=== PATIENT | male | born 1945 | race Caucasian/White ===

== ENCOUNTER 2020-11-26 12:51 | Inpatient (IN) ==
[~2020-11-26 12:51] MED LIST: ACETAMINOPHEN 325 MG TABLET PO PRN; HYDROmorphone 2 MG/1 ML VIAL IV PRN; ONDANSETRON 4 MG/2 ML VIAL IV PRN; PROMETHAZINE 25 MG/1 ML VIAL IM PRN; cefTRIAXone 1,000 MG in SODIUM CHLORIDE 0.9% 100 ML IV ONE
[2020-11-26 13:39] LABS: Basophils # 0.1 10*3/uL (0.0-0.2); Basophils % 1.6 % (0.0-0.8); Eosinophils # 0.4 10*3/uL (0.0-0.87); Eosinophils % 4.8 % (0.00-10.9); Hematocrit 43.6 VOL% (42.0-52.0); Hemoglobin 14.8 GM/DL (14.0-18.0); Immature Granulocytes % 0.3 %; Immature Granulocytes Absolute 0.02 #; Lymphocytes # 1.8 10*3/uL (1.4-4.0); Lymphocytes % 25.1 % (21.2-54.2); Mean Corpuscular HGB Conc 33.9 GM/DL (32-36); Mean Corpuscular Volume 93.2 FL (87-102); Mean Platelet Volume 10.6 FL (9.6-12.0); Neutrophils % 58.2 % (38.7-73.9); Platelet Count 227 T/CUMM (130-400); Red Blood Count 4.68 MC/CUMM (3.8-5.5); Red Cell Distribution Width 13.3 % (9.3-17.3); White Blood Count 7.3 T/CUMM (4-12)
[2020-11-26 13:49] LABS: Calcium 9.1 MG/DL (8.5-10.1); Osmolality,Calculated 273.8 MOS/KG (273-304); Potassium 4.1 MMOL/L (3.5-5.1)
[2020-11-26] MEDS ORDERED: FAMOTIDINE 20 MG TABLET PO ONE (13:55)
[2020-11-26] MEDS ORDERED: fentaNYL 100 MCG/2 ML VIAL ONE (15:08)
[2020-11-26] MEDS ORDERED: ePHEDrine 50 MG/ML VIAL ONE (15:22)
[2020-11-26] MEDS ORDERED: SEVOFLURANE 1 UNIT/15 MINUTE INH ONE (16:04)
[2020-11-26] MEDS ORDERED: ROCURONIUM 50 MG/5 ML VIAL IV ONE (16:04)
[2020-11-26] MEDS ORDERED: EPINEPHrine 1 MG/ML VIAL ONE (16:04)
[2020-11-26] MEDS ORDERED: propofoL 200 MG/20 ML VIAL IV ONE (16:04)
[2020-11-26] MEDS ORDERED: SUCCINYLCHOLINE 200 MG/10 ML VIAL ONE (16:04)
[2020-11-26] MEDS ORDERED: ONDANSETRON 4 MG/2 ML VIAL ONE (16:04)
[2020-11-26] MEDS ORDERED: SODIUM CHLORIDE 0.9% 250 ML IV ONE (16:04)
[2020-11-26] MEDS ORDERED: DEXAMETHASONE 4 MG/1 ML VIAL ONE (16:04)
[2020-11-26] MEDS ORDERED: LIDOCAINE 2% 5 ML VIAL ONE (16:04)
[2020-11-26 17:18] LABS: Bacteria,Urine Few /HPF (Few); Bilirubin,Urine Negative (Negative); Blood, Urine Large mg/dL (Negative); Glucose,Urine (UA) Negative (Negative); Ketones,Urine Negative (Negative); Nitrite,Urine Negative (Negative); Protein,Urine >=500 MG/DL; RBC,Urine 9717 /HPF (0-4); Urine Appearance CLOUDY (Clear); Urine Color Red (Yellow); Urine Urobilinogen < 2.0 EU/DL (0.2-1.0)
[2020-11-26] MEDS ORDERED: diphenhydrAMINE CAP 25 MG CAPSULE PO PRN (17:43)
[2020-11-26] MEDS: SODIUM CHLORIDE 0.9% 1,000 ML IV SCH (18:25)
[2020-11-26] MEDS: cefTRIAXone 1,000 MG in SODIUM CHLORIDE 0.9% 100 ML IV SCH (18:35)
[2020-11-26] MEDS: oxyCODONE/ACETAMINOPHEN 5-325 MG TABLET PO PRN ×2 (18:35→22:38)
[2020-11-26] MEDS: CITALOPRAM 20 MG TABLET PO SCH (21:25)
[2020-11-26] MEDS: tiZANidine 4 MG TABLET PO SCH (21:25)
[2020-11-27] MEDS: oxyCODONE/ACETAMINOPHEN 5-325 MG TABLET PO PRN ×3 (04:09→20:16)
[2020-11-27] MEDS: SODIUM CHLORIDE 0.9% 1,000 ML IV SCH ×3 (05:06→22:58)
[2020-11-27 06:42] LABS: Basophils % 0.1 % (0.0-0.8); Hematocrit 38.1 VOL% (42.0-52.0); Hemoglobin 12.8 GM/DL (14.0-18.0); Immature Granulocytes % 0.6 %; Immature Granulocytes Absolute 0.07 #; Lymphocytes # 0.7 10*3/uL (1.4-4.0); Lymphocytes % 6.1 % (21.2-54.2); Mean Corpuscular HGB Conc 33.6 GM/DL (32-36); Mean Corpuscular Volume 93.4 FL (87-102); Mean Platelet Volume 10.7 FL (9.6-12.0); Neutrophils % 88.2 % (38.7-73.9); Platelet Count 199 T/CUMM (130-400); Red Blood Count 4.08 MC/CUMM (3.8-5.5); Red Cell Distribution Width 13.2 % (9.3-17.3); White Blood Count 11.9 T/CUMM (4-12)
[2020-11-27 06:58] LABS: Calcium 8.5 MG/DL (8.5-10.1); Osmolality,Calculated 274.1 MOS/KG (273-304); Potassium 4.1 MMOL/L (3.5-5.1)
[2020-11-27] MEDS: amLODIPine 10 MG TABLET PO SCH (08:58)
[2020-11-27] MEDS: TAMSULOSIN 0.4 MG CAPSULE PO SCH (08:58)
[2020-11-27] MEDS: METOPROLOL TARTRATE 25 MG TABLET PO SCH (08:58)
[2020-11-27] MEDS: cefTRIAXone 1,000 MG in SODIUM CHLORIDE 0.9% 100 ML IV SCH (17:19)
[2020-11-27] MEDS: tiZANidine 4 MG TABLET PO SCH (20:16)
[2020-11-27] MEDS: CITALOPRAM 20 MG TABLET PO SCH (20:16)
[2020-11-27] MEDS ORDERED: ROSUVASTATIN 10 MG TABLET PO SCH (21:00)
[2020-11-28 06:51] LABS: Basophils # 0.1 10*3/uL (0.0-0.2); Basophils % 0.9 % (0.0-0.8); Eosinophils # 0.1 10*3/uL (0.0-0.87); Eosinophils % 1.7 % (0.00-10.9); Hematocrit 37.5 VOL% (42.0-52.0); Hemoglobin 12.6 GM/DL (14.0-18.0); Immature Granulocytes % 0.4 %; Immature Granulocytes Absolute 0.03 #; Lymphocytes # 1.4 10*3/uL (1.4-4.0); Lymphocytes % 17.2 % (21.2-54.2); Mean Corpuscular HGB Conc 33.6 GM/DL (32-36); Mean Corpuscular Volume 94.2 FL (87-102); Mean Platelet Volume 11.3 FL (9.6-12.0); Monocytes % 9.1 % (1.7-12.7); Neutrophils % 70.7 % (38.7-73.9); Platelet Count 192 T/CUMM (130-400); Red Blood Count 3.98 MC/CUMM (3.8-5.5); Red Cell Distribution Width 13.4 % (9.3-17.3); White Blood Count 8.2 T/CUMM (4-12)
[2020-11-28 07:01] LABS: Calcium 8.2 MG/DL (8.5-10.1); Osmolality,Calculated 284.1 MOS/KG (273-304); Potassium 3.9 MMOL/L (3.5-5.1)
[2020-11-28] MEDS: SODIUM CHLORIDE 0.9% 1,000 ML IV SCH (07:43)
[2020-11-28 07:47] LABS: Risk Ratio 2.89
[2020-11-28] MEDS: TAMSULOSIN 0.4 MG CAPSULE PO SCH (09:48)
[2020-11-28] MEDS: amLODIPine 10 MG TABLET PO SCH (09:49)
[2020-11-28] MEDS: METOPROLOL TARTRATE 25 MG TABLET PO SCH (09:49)
[2020-11-28] MEDS: oxyCODONE/ACETAMINOPHEN 5-325 MG TABLET PO PRN (09:50)
[2020-11-28 12:30] VITALS: BP 132/79
== END 2020-11-28 14:41 | disposition home or self-care (01) | DRG 661 ==
LOC: N.OR 12:51 → N.SDSINP 12:54 → N.5E 17:47
PROVIDERS: ADMIT Surgery; ATTEND Surgery

== ENCOUNTER 2021-04-06 09:35 | Inpatient (IN) ==
[2021-03-25 11:35] LABS: Basophils # 0.1 10*3/uL (0.0-0.2); Basophils % 1.6 % (0.0-0.8); Eosinophils # 0.3 10*3/uL (0.0-0.87); Eosinophils % 5.1 % (0.00-10.9); Hematocrit 42.6 VOL% (42.0-52.0); Hemoglobin 14.3 GM/DL (14.0-18.0); Immature Granulocytes % 0.3 %; Immature Granulocytes Absolute 0.02 #; Lymphocytes # 1.5 10*3/uL (1.4-4.0); Lymphocytes % 24.2 % (21.2-54.2); Mean Corpuscular HGB Conc 33.6 GM/DL (32-36); Mean Platelet Volume 11.3 FL (9.6-12.0); Monocytes % 9.6 % (1.7-12.7); Neutrophils % 59.2 % (38.7-73.9); Platelet Count 219 T/CUMM (130-400); Red Blood Count 4.58 MC/CUMM (3.8-5.5); Red Cell Distribution Width 12.9 % (9.3-17.3); White Blood Count 6.3 T/CUMM (4-12)
[2021-03-25 11:59] LABS: Albumin 4.1 G/DL (3.4-5.0); Bilirubin,Total 0.8 MG/DL (0.20-1.00); Calcium 9.1 MG/DL (8.5-10.1); Potassium 4.5 MMOL/L (3.5-5.1); Total Protein 7.6 G/DL (6.4-8.2)
[~2021-04-06 09:35] MED LIST changes: -ACETAMINOPHEN 325 MG TABLET PO PRN; +ACETAMINOPHEN 500 MG TABLET PO ONE; +FAMOTIDINE 20 MG TABLET PO ONE; +GABAPENTIN 400 MG CAPSULE PO ONE; -HYDROmorphone 2 MG/1 ML VIAL IV PRN; +LACTATED RINGERS 1,000 ML IV SCH; -ONDANSETRON 4 MG/2 ML VIAL IV PRN; -PROMETHAZINE 25 MG/1 ML VIAL IM PRN; +cefTRIAXone 1,000 MG VIAL ONE
[2021-04-06 10:50] LABS: Calcium 8.7 MG/DL (8.5-10.1); Osmolality,Calculated 277.5 MOS/KG (273-304); Potassium 4.3 MMOL/L (3.5-5.1)
[2021-04-06] MEDS ORDERED: ACETAMINOPHEN 500 MG TABLET ONE (10:52)
[2021-04-06] MEDS ORDERED: FAMOTIDINE 20 MG TABLET ONE (10:52)
[2021-04-06] MEDS: ALVIMOPAN 12 MG CAPSULE PO SCH ×2 (10:54→21:28)
[2021-04-06] MEDS ORDERED: LACTATED RINGERS 1,000 ML IV SCH (11:30)
[2021-04-06] MEDS ORDERED: fentaNYL 100 MCG/2 ML VIAL ONE ×2 (11:57→14:23)
[2021-04-06] MEDS ORDERED: ROCURONIUM 50 MG/5 ML VIAL IV ONE (11:57)
[2021-04-06] MEDS ORDERED: DEXAMETHASONE 4 MG/1 ML VIAL ONE (11:57)
[2021-04-06] MEDS ORDERED: SUCCINYLCHOLINE 200 MG/10 ML VIAL ONE (11:57)
[2021-04-06] MEDS ORDERED: ONDANSETRON 4 MG/2 ML VIAL ONE ×2 (11:57→18:06)
[2021-04-06] MEDS ORDERED: propofoL 200 MG/20 ML VIAL IV ONE ×2 (11:57→18:06)
[2021-04-06] MEDS ORDERED: LIDOCAINE 2% 5 ML VIAL ONE (11:57)
[2021-04-06] MEDS ORDERED: GABAPENTIN 400 MG CAPSULE ONE (12:53)
[2021-04-06] MEDS ORDERED: ePHEDrine 50 MG/ML VIAL ONE (13:34)
[2021-04-06] MEDS ORDERED: PHENYLEPHRINE 10 MG/1 ML VIAL IV ONE (13:35)
[2021-04-06] MEDS ORDERED: SEVOFLURANE 1 UNIT/15 MINUTE INH ONE ×3 (13:59→18:43)
[2021-04-06] MEDS ORDERED: TISSUE ADHESIVE 1 EACH APPLICATOR TOP ONE (14:14)
[2021-04-06] MEDS ORDERED: ROPIVACAINE 0.5% 30 ML VIAL ONE (14:14)
[2021-04-06] MEDS ORDERED: INDOCYANINE GREEN 25 MG VIAL IV ONE (14:16)
[2021-04-06] MEDS ORDERED: LACTATED RINGERS 2,000 ML IV ONE (18:07)
[2021-04-06] MEDS ORDERED: ONDANSETRON 4 MG/2 ML VIAL IV PRN ×2 (19:13→19:26)
[2021-04-06] MEDS ORDERED: LACTULOSE 20 GM/30 ML UDCUP PO PRN (19:13)
[2021-04-06] MEDS ORDERED: PROMETHAZINE 25 MG/1 ML VIAL IM PRN (19:13)
[2021-04-06] MEDS ORDERED: diphenhydrAMINE CAP 25 MG CAPSULE PO PRN (19:17)
[2021-04-06] MEDS ORDERED: diphenhydrAMINE 50 MG/1 ML VIAL IV PRN (19:18)
[2021-04-06] MEDS: HYDROmorphone 2 MG/1 ML VIAL IV PRN ×4 (19:25→19:40)
[2021-04-06 19:41] LABS: Basophils # 0.1 10*3/uL (0.0-0.2); Basophils % 0.4 % (0.0-0.8); Eosinophils % 0.1 % (0.00-10.9); Hematocrit 46.1 VOL% (42.0-52.0); Hemoglobin 14.5 GM/DL (14.0-18.0); Immature Granulocytes % 0.3 %; Immature Granulocytes Absolute 0.04 #; Lymphocytes # 0.7 10*3/uL (1.4-4.0); Lymphocytes % 6.2 % (21.2-54.2); Mean Corpuscular HGB Conc 31.5 GM/DL (32-36); Mean Platelet Volume 10.6 FL (9.6-12.0); Monocytes % 2.9 % (1.7-12.7); Neutrophils % 90.1 % (38.7-73.9); Platelet Count 184 T/CUMM (130-400); Red Blood Count 4.61 MC/CUMM (3.8-5.5); Red Cell Distribution Width 12.9 % (9.3-17.3)
[2021-04-06 19:59] LABS: Calcium 8.4 MG/DL (8.5-10.1); Osmolality,Calculated 277.7 MOS/KG (273-304); Potassium 4.3 MMOL/L (3.5-5.1)
[2021-04-06] MEDS: cefTRIAXone 1,000 MG in SODIUM CHLORIDE 0.9% 100 ML IV SCH (21:27)
[2021-04-06] MEDS: tiZANidine 4 MG TABLET PO SCH (21:28)
[2021-04-06] MEDS: CITALOPRAM 20 MG TABLET PO SCH (21:28)
[2021-04-07] MEDS: SODIUM CHLORIDE 0.9% 1,000 ML IV SCH ×3 (01:42→21:22)
[2021-04-07 05:16] LABS: Basophils % 0.2 % (0.0-0.8); Hematocrit 36.4 VOL% (42.0-52.0); Immature Granulocytes % 0.3 %; Immature Granulocytes Absolute 0.04 #; Lymphocytes # 0.7 10*3/uL (1.4-4.0); Lymphocytes % 5.8 % (21.2-54.2); Mean Corpuscular Volume 94.3 FL (87-102); Mean Platelet Volume 11.1 FL (9.6-12.0); Neutrophils % 86.7 % (38.7-73.9); Platelet Count 184 T/CUMM (130-400); Red Blood Count 3.86 MC/CUMM (3.8-5.5); Red Cell Distribution Width 12.9 % (9.3-17.3); White Blood Count 11.7 T/CUMM (4-12)
[2021-04-07 05:41] LABS: Calcium 8.1 MG/DL (8.5-10.1); Osmolality,Calculated 278.7 MOS/KG (273-304); Potassium 4.8 MMOL/L (3.5-5.1)
[2021-04-07] MEDS: HYDROmorphone 2 MG/1 ML VIAL IV PRN ×4 (05:58→21:29)
[2021-04-07] MEDS: METOPROLOL TARTRATE 25 MG TABLET PO SCH (08:59)
[2021-04-07] MEDS: DULoxetine 30 MG CAPSULE PO SCH (08:59)
[2021-04-07] MEDS: ALVIMOPAN 12 MG CAPSULE PO SCH ×2 (08:59→21:25)
[2021-04-07] MEDS: cefTRIAXone 1,000 MG in SODIUM CHLORIDE 0.9% 100 ML IV SCH (21:22)
[2021-04-07] MEDS: CITALOPRAM 20 MG TABLET PO SCH (21:25)
[2021-04-07] MEDS: tiZANidine 4 MG TABLET PO SCH (21:25)
[2021-04-08] MEDS: SODIUM CHLORIDE 0.9% 1,000 ML IV SCH ×4 (02:16→18:36)
[2021-04-08 05:40] LABS: Basophils % 0.5 % (0.0-0.8); Eosinophils # 0.3 10*3/uL (0.0-0.87); Eosinophils % 3.9 % (0.00-10.9); Hematocrit 34.5 VOL% (42.0-52.0); Hemoglobin 11.5 GM/DL (14.0-18.0); Immature Granulocytes % 0.3 %; Immature Granulocytes Absolute 0.02 #; Lymphocytes # 1.2 10*3/uL (1.4-4.0); Lymphocytes % 16.7 % (21.2-54.2); Mean Corpuscular HGB Conc 33.3 GM/DL (32-36); Mean Corpuscular Volume 93.8 FL (87-102); Mean Platelet Volume 10.6 FL (9.6-12.0); Monocytes % 10.6 % (1.7-12.7); Platelet Count 160 T/CUMM (130-400); Red Blood Count 3.68 MC/CUMM (3.8-5.5); Red Cell Distribution Width 12.9 % (9.3-17.3); White Blood Count 7.4 T/CUMM (4-12)
[2021-04-08 06:09] LABS: Calcium 8.2 MG/DL (8.5-10.1); Osmolality,Calculated 274.7 MOS/KG (273-304); Potassium 4.1 MMOL/L (3.5-5.1)
[2021-04-08] MEDS: HYDROmorphone 2 MG/1 ML VIAL IV PRN ×3 (09:19→21:40)
[2021-04-08] MEDS: DULoxetine 30 MG CAPSULE PO SCH (09:20)
[2021-04-08] MEDS: ALVIMOPAN 12 MG CAPSULE PO SCH ×2 (09:20→21:38)
[2021-04-08] MEDS: METOPROLOL TARTRATE 25 MG TABLET PO SCH (09:20)
[2021-04-08] MEDS: ACETAMINOPHEN 500 MG TABLET PO SCH ×3 (09:40→21:38)
[2021-04-08] MEDS: CITALOPRAM 20 MG TABLET PO SCH (21:38)
[2021-04-08] MEDS: tiZANidine 4 MG TABLET PO SCH (21:38)
[2021-04-08] MEDS: cefTRIAXone 1,000 MG in SODIUM CHLORIDE 0.9% 100 ML IV SCH (21:42)
[2021-04-09] MEDS: ACETAMINOPHEN 500 MG TABLET PO SCH ×2 (03:20→08:36)
[2021-04-09] MEDS: SODIUM CHLORIDE 0.9% 1,000 ML IV SCH ×2 (05:05→10:46)
[2021-04-09] MEDS: HYDROmorphone 2 MG/1 ML VIAL IV PRN (07:38)
[2021-04-09] MEDS: METOPROLOL TARTRATE 25 MG TABLET PO SCH (08:36)
[2021-04-09] MEDS: ALVIMOPAN 12 MG CAPSULE PO SCH (08:36)
[2021-04-09] MEDS: DULoxetine 30 MG CAPSULE PO SCH (08:36)
[2021-04-09 09:53] LABS: Basophils % 0.5 % (0.0-0.8); Eosinophils # 0.3 10*3/uL (0.0-0.87); Eosinophils % 3.7 % (0.00-10.9); Hematocrit 41.4 VOL% (42.0-52.0); Hemoglobin 14.2 GM/DL (14.0-18.0); Immature Granulocytes % 0.4 %; Immature Granulocytes Absolute 0.03 #; Lymphocytes # 0.9 10*3/uL (1.4-4.0); Lymphocytes % 11.5 % (21.2-54.2); Mean Corpuscular HGB Conc 34.3 GM/DL (32-36); Mean Corpuscular Volume 94.1 FL (87-102); Mean Platelet Volume 10.4 FL (9.6-12.0); Monocytes % 8.7 % (1.7-12.7); Neutrophils % 75.2 % (38.7-73.9); Platelet Count 188 T/CUMM (130-400); Red Cell Distribution Width 12.8 % (9.3-17.3)
[2021-04-09 10:19] LABS: Potassium 3.8 MMOL/L (3.5-5.1)
[2021-04-09 12:30] VITALS: BP 136/82
[2021-04-12 17:41] LABS: Stone Analysis Interpretation SEE COMMENTS
== END 2021-04-09 14:57 | disposition home or self-care (01) | DRG 661 ==
LOC: N.OR 09:35 → N.SDSINP 09:36 → N.3E 19:13
PROVIDERS: ADMIT Surgery; ATTEND Surgery

== ENCOUNTER 2021-10-12 05:49 | Observation (INO) ==
[2021-10-12] MEDS ORDERED: ceFAZolin 1,000 MG VIAL ONE (05:57)
[2021-10-12] MEDS ORDERED: VANCOMYCIN 1,000 MG VIAL ONE (05:57)
[2021-10-12] MEDS ORDERED: BACITRACIN OINT 0.9 GM PACK TOP ONE (06:49)
[2021-10-12 06:51] LABS: Partial Thromboplastin Time 25.6 SECS (23.8-32.1)
[2021-10-12] MEDS ORDERED: MIDAZOLAM 2 MG/2 ML VIAL ONE (07:15)
[2021-10-12] MEDS ORDERED: fentaNYL 100 MCG/2 ML VIAL ONE ×2 (07:15→09:54)
[2021-10-12] MEDS ORDERED: LACTATED RINGERS 1,000 ML IV SCH (07:15)
[2021-10-12] MEDS ORDERED: GABAPENTIN 400 MG CAPSULE PO ONE (07:22)
[2021-10-12] MEDS ORDERED: FAMOTIDINE 20 MG TABLET PO ONE (07:22)
[2021-10-12] MEDS ORDERED: ROPIVACAINE 0.5% 30 ML VIAL ONE (07:24)
[2021-10-12] MEDS ORDERED: LIDOCAINE 1% 5 ML VIAL ONE (07:24)
[2021-10-12] MEDS ORDERED: DEXAMETHASONE 4 MG/1 ML VIAL ONE (07:24)
[2021-10-12] MEDS ORDERED: VANCOMYCIN INJ 1,000 MG in SODIUM CHLORIDE 0.9% 250 ML IV ONE (07:40)
[2021-10-12] MEDS ORDERED: ePHEDrine 50 MG/ML VIAL ONE (08:43)
[2021-10-12] MEDS ORDERED: ROCURONIUM 50 MG/5 ML VIAL IV ONE (08:47)
[2021-10-12] MEDS ORDERED: ONDANSETRON 4 MG/2 ML VIAL ONE (08:47)
[2021-10-12] MEDS ORDERED: propofoL 200 MG/20 ML VIAL IV ONE (08:47)
[2021-10-12] MEDS ORDERED: LIDOCAINE 2% 5 ML VIAL ONE (08:47)
[2021-10-12] MEDS ORDERED: LACTATED RINGERS 1,000 ML IV ONE (09:21)
[2021-10-12] MEDS ORDERED: PHENYLEPHRINE 1 MG/10 ML SYRINGE IV ONE (09:21)
[2021-10-12] MEDS ORDERED: TRANEXAMIC ACID 1,000 MG/10 ML VIAL ONE ×2 (09:21)
[2021-10-12] MEDS ORDERED: BUPIVACAINE SPINAL 0.75% 2 ML AMP SPINAL ONE (09:21)
[2021-10-12] MEDS ORDERED: NEOSTIGMINE 10 MG/10 ML VIAL ONE (09:28)
[2021-10-12] MEDS ORDERED: GLYCOPYRROLATE 0.4 MG/2 ML VIAL ONE ×2 (09:28→09:38)
[2021-10-12] MEDS ORDERED: tiZANidine 4 MG TABLET PO PRN (09:58)
[2021-10-12] MEDS ORDERED: diphenhydrAMINE CAP 25 MG CAPSULE PO PRN (10:00)
[2021-10-12] MEDS ORDERED: ONDANSETRON 4 MG/2 ML VIAL IV PRN ×2 (10:00→10:21)
[2021-10-12] MEDS ORDERED: MAGNESIUM HYDROXIDE SUSP 30 ML UDCUP PO PRN (10:00)
[2021-10-12] MEDS ORDERED: MORPHINE 2 MG/1 ML SYRINGE IV PRN ×2 (10:00)
[2021-10-12] MEDS ORDERED: MEPERIDINE 25 MG/1 ML VIAL IV PRN (10:21)
[2021-10-12] MEDS ORDERED: MEPERIDINE 25 MG/1 ML VIAL ONE (10:23)
[2021-10-12] MEDS: LACTATED RINGERS 1,000 ML IV SCH ×2 (12:00→20:41)
[2021-10-12] MEDS: ceFAZolin 2,000 MG/50 ML DUPLEX IV SCH (16:25)
[2021-10-12] MEDS: DOCUSATE SODIUM 100 MG CAPSULE PO SCH (20:40)
[2021-10-12] MEDS ORDERED: SIMVASTATIN 40 MG TABLET PO SCH (21:00)
[2021-10-12] MEDS ORDERED: CITALOPRAM 20 MG TABLET PO SCH (21:00)
[2021-10-13] MEDS: ceFAZolin 2,000 MG/50 ML DUPLEX IV SCH (00:14)
[2021-10-13] MEDS: LACTATED RINGERS 1,000 ML IV SCH (03:22)
[2021-10-13] MEDS ORDERED: FONDAPARINUX 2.5 MG/0.5 ML SYRINGE SUBCUT SCH (04:00)
[2021-10-13 06:45] LABS: Basophils % 0.2 % (0.0-0.8); Eosinophils % 0.1 % (0.00-10.9); Hematocrit 36.2 VOL% (42.0-52.0); Hemoglobin 12.1 GM/DL (14.0-18.0); Immature Granulocytes % 0.5 %; Immature Granulocytes Absolute 0.04 #; Lymphocytes # 0.7 10*3/uL (1.4-4.0); Lymphocytes % 8.8 % (21.2-54.2); Mean Corpuscular HGB Conc 33.4 GM/DL (32-36); Mean Corpuscular Volume 92.6 FL (87-102); Mean Platelet Volume 11.6 FL (9.6-12.0); Monocytes % 8.3 % (1.7-12.7); Neutrophils % 82.1 % (38.7-73.9); Platelet Count 144 T/CUMM (130-400); Red Blood Count 3.91 MC/CUMM (3.8-5.5); Red Cell Distribution Width 14.2 % (9.3-17.3); White Blood Count 8.3 T/CUMM (4-12)
[2021-10-13 07:00] LABS: Osmolality,Calculated 278.7 MOS/KG (273-304); Potassium 3.8 MMOL/L (3.5-5.1)
[2021-10-13 07:29] VITALS: BP 132/79
[2021-10-13] MEDS ORDERED: CHOLECALCIFEROL 1,000 UNIT TABLET PO SCH (09:00)
[2021-10-13] MEDS: DOCUSATE SODIUM 100 MG CAPSULE PO SCH (10:02)
== END 2021-10-13 10:45 | disposition home health service (06) ==
LOC: N.OR 05:49 → N.SDSINP 05:49 → N.3E 16:00
PROVIDERS: ADMIT Orthopaedic Surgery; ATTEND Orthopaedic Surgery

== ENCOUNTER 2021-11-09 16:52 | Inpatient (IN) ==
[2021-11-09] MEDS ORDERED: ACETAMINOPHEN 500 MG TABLET PO STA (19:27)
[2021-11-09] MEDS ORDERED: SODIUM CHLORIDE 0.9% 1,000 ML IV STA (19:27)
[2021-11-09] MEDS ORDERED: MEROPENEM 500 MG in SODIUM CHLORIDE 0.9% 100 ML IV STA (19:27)
[2021-11-09 19:40] LABS: Basophils # 0.1 10*3/uL (0.0-0.2); Basophils % 0.5 % (0.0-0.8); Hematocrit 36.7 VOL% (42.0-52.0); Hemoglobin 12.1 GM/DL (14.0-18.0); Immature Granulocytes % 0.8 %; Immature Granulocytes Absolute 0.14 #; Lymphocytes # 0.8 10*3/uL (1.4-4.0); Lymphocytes % 4.9 % (21.2-54.2); Mean Corpuscular Volume 93.1 FL (87-102); Mean Platelet Volume 10.5 FL (9.6-12.0); Monocytes # 0.9 10*3/uL (0.11-0.8); Monocytes % 5.5 % (1.7-12.7); Neutrophils % 88.3 % (38.7-73.9); Platelet Count 187 T/CUMM (130-400); Red Blood Count 3.94 MC/CUMM (3.8-5.5); Red Cell Distribution Width 14.3 % (9.3-17.3); White Blood Count 16.8 T/CUMM (4-12)
[2021-11-09 20:02] LABS: Lymphocytes 5 % (20-55); Platelet Estimate Adequate; Total Cells Counted 100
[2021-11-09] MEDS ORDERED: SODIUM CHLORIDE 0.9% 2,500 ML IV ONE (20:15)
[2021-11-09 20:45] LABS: Alanine Aminotransferase 17 U/L (16-61); Albumin 3.5 G/DL (3.4-5.0); Alkaline Phosphatase 73 U/L (45-117); Amylase 101 U/L (25-115); Aspartate Amino Transferase 14 U/L (0-37); Blood Urea Nitrogen 22 MG/DL (7-18); Calcium 9.6 MG/DL (8.5-10.1); Carbon Dioxide 20 MMOL/L (21-32); Chloride 103 MMOL/L (98-107); Estimated Glom Filtration Rate 43 ML/MIN; Glucose 108 MG/DL (74-106); Osmolality,Calculated 265.7 MOS/KG (273-304); Potassium 3.7 MMOL/L (3.5-5.1); Sodium 131 MMOL/L (136-145); Total Protein 7.9 G/DL (6.4-8.2)
[2021-11-09 20:54] LABS: Hyaline Casts,Urine 10 /LPF (0-3); Mucus,Urine Few /LPF (Occasional); RBC,Urine 14 /HPF (0-4)
[2021-11-09 20:55] LABS: Bilirubin,Urine Negative (Negative); Blood, Urine Moderate mg/dL (Negative); Glucose,Urine (UA) Negative (Negative); Ketones,Urine 15 mg/dL (Negative); Nitrite,Urine Negative (Negative); Protein,Urine 100 mg/dL (Negative); Urine Appearance Clear (Clear); Urine Color Yellow (Yellow); Urine Specific Gravity 1.015 (1.001-1.035); Urine Urobilinogen 0.2 eU/dL (<2.0)
[2021-11-09] MEDS ORDERED: PIPERACILLIN/TAZOBACTAM 3,375 MG in SODIUM CHLORIDE 0.9% 100 ML IV SCH (21:00)
[2021-11-09] MEDS ORDERED: ACETAMINOPHEN 325 MG TABLET PO PRN (23:03)
[2021-11-09] MEDS ORDERED: ONDANSETRON 4 MG/2 ML VIAL IV PRN (23:03)
[2021-11-10] MEDS: SODIUM CHLORIDE 0.9% 1,000 ML IV SCH (01:11)
[2021-11-10 02:55] LABS: Albumin 2.7 G/DL (3.4-5.0); Bilirubin,Total 0.7 MG/DL (0.20-1.00); Calcium 8.3 MG/DL (8.5-10.1); Osmolality,Calculated 275.8 MOS/KG (273-304); Potassium 3.7 MMOL/L (3.5-5.1); Total Protein 6.3 G/DL (6.4-8.2)
[2021-11-10] MEDS ORDERED: MEROPENEM 500 MG in SODIUM CHLORIDE 0.9% 100 ML IV SCH (04:00)
[2021-11-10 04:10] LABS: Basophils % 0.2 % (0.0-0.8); Eosinophils % 0.1 % (0.00-10.9); Hematocrit 31.1 VOL% (42.0-52.0); Hemoglobin 10.4 GM/DL (14.0-18.0); Immature Granulocytes % 0.9 %; Immature Granulocytes Absolute 0.15 #; Lymphocytes % 6.1 % (21.2-54.2); Mean Corpuscular HGB Conc 33.4 GM/DL (32-36); Mean Platelet Volume 10.2 FL (9.6-12.0); Monocytes # 1.2 10*3/uL (0.11-0.8); Monocytes % 7.1 % (1.7-12.7); Neutrophils % 85.6 % (38.7-73.9); Platelet Count 154 T/CUMM (130-400); Red Blood Count 3.38 MC/CUMM (3.8-5.5); Red Cell Distribution Width 14.3 % (9.3-17.3); White Blood Count 16.7 T/CUMM (4-12)
[2021-11-10] MEDS: PANTOPRAZOLE 40 MG TABLET PO SCH (08:38)
[2021-11-10] MEDS: METOPROLOL TARTRATE 25 MG TABLET PO SCH (08:39)
[2021-11-10] MEDS ORDERED: LEVOFLOXACIN INJ 500 MG/100 ML PREMIX IV SCH (13:00)
[2021-11-10] MEDS ORDERED: SIMVASTATIN 40 MG TABLET PO SCH (21:00)
[2021-11-10] MEDS: CITALOPRAM 20 MG TABLET PO SCH (23:02)
[2021-11-10] MEDS: HEPARIN 5,000 UNIT/1 ML VIAL SUBCUT SCH (23:02)
[2021-11-11] MEDS: SODIUM CHLORIDE 0.9% 1,000 ML IV SCH ×2 (02:10→07:17)
[2021-11-11 05:16] LABS: Basophils # 0.1 10*3/uL (0.0-0.2); Basophils % 0.7 % (0.0-0.8); Eosinophils # 0.3 10*3/uL (0.0-0.87); Eosinophils % 2.6 % (0.00-10.9); Hematocrit 31.2 VOL% (42.0-52.0); Hemoglobin 10.5 GM/DL (14.0-18.0); Immature Granulocytes % 0.6 %; Immature Granulocytes Absolute 0.07 #; Lymphocytes # 1.1 10*3/uL (1.4-4.0); Lymphocytes % 9.3 % (21.2-54.2); Mean Corpuscular HGB Conc 33.7 GM/DL (32-36); Mean Corpuscular Volume 93.4 FL (87-102); Mean Platelet Volume 10.5 FL (9.6-12.0); Monocytes # 0.6 10*3/uL (0.11-0.8); Monocytes % 5.5 % (1.7-12.7); Neutrophils % 81.3 % (38.7-73.9); Platelet Count 178 T/CUMM (130-400); Red Blood Count 3.34 MC/CUMM (3.8-5.5); Red Cell Distribution Width 14.3 % (9.3-17.3); White Blood Count 11.6 T/CUMM (4-12)
[2021-11-11 05:45] LABS: Calcium 8.1 MG/DL (8.5-10.1); Osmolality,Calculated 280.3 MOS/KG (273-304); Potassium 3.9 MMOL/L (3.5-5.1)
[2021-11-11] MEDS: HEPARIN 5,000 UNIT/1 ML VIAL SUBCUT SCH ×2 (09:56→21:06)
[2021-11-11] MEDS: PANTOPRAZOLE 40 MG TABLET PO SCH (09:56)
[2021-11-11] MEDS: LEVOFLOXACIN 500 MG TABLET PO SCH (09:56)
[2021-11-11] MEDS: METOPROLOL TARTRATE 25 MG TABLET PO SCH (09:56)
[2021-11-11] MEDS: amLODIPine 5 MG TABLET PO SCH (15:37)
[2021-11-11] MEDS ORDERED: MELATONIN 3 MG TABLET PO PRN (20:27)
[2021-11-11] MEDS ORDERED: ATORVASTATIN 40 MG TABLET PO SCH (21:00)
[2021-11-11] MEDS: CITALOPRAM 20 MG TABLET PO SCH (21:07)
[2021-11-11] MEDS: TAMSULOSIN 0.4 MG CAPSULE PO SCH (21:07)
[2021-11-12] MEDS: SODIUM CHLORIDE 0.9% 1,000 ML IV SCH ×2 (02:49→18:37)
[2021-11-12] MEDS: METOPROLOL TARTRATE 25 MG TABLET PO SCH (09:40)
[2021-11-12] MEDS: HEPARIN 5,000 UNIT/1 ML VIAL SUBCUT SCH (09:41)
[2021-11-12] MEDS: TAMSULOSIN 0.4 MG CAPSULE PO SCH (09:41)
[2021-11-12] MEDS: amLODIPine 5 MG TABLET PO SCH (09:41)
[2021-11-12] MEDS: PANTOPRAZOLE 40 MG TABLET PO SCH (09:41)
[2021-11-12] MEDS: LEVOFLOXACIN 500 MG TABLET PO SCH (09:41)
[2021-11-12 17:03] VITALS: BP 126/83
== END 2021-11-12 18:32 | disposition home or self-care (01) | DRG 690 ==
LOC: N.ED 16:52 → SUATTDRO 23:03 → N.EDINP 23:03 → N.5E 23:33
PROVIDERS: ADMIT Internal Medicine; ATTEND Internal Medicine